=== PATIENT | male | born 1960 ===

== ENCOUNTER 2021-05-03 21:24 | Emergency (ER) | payer SELFPAY ==
[~2021-05-03] VITALS: Ht 167.6 cm; Wt 70.0 kg
[2021-05-03 21:33] VITALS: BP 107/47
--- NOTE | 2021-05-03 21:40 | NUR ---
[facility] PT STATES SOB X TODAY, PT WAS JUST SEEN AT [facility] FOR SAME,
--- NOTE | 2021-05-03 21:47 | NUR ---
PT CAME OUT YELLING IN HALLWAY, PT TRIED TO SLAM GLASS DOOR IN THIS NURSES FACE YELLING FOR A PHONE, SECURITY CALLED AND BREANNA PENA STATED TO REMOVE PT FROM ER
== END 2021-05-03 21:57 | disposition home or self-care (01) ==
LOC: ED 21:51
DX: R06.00 Dyspnea, unspecified (principal); F17.210 Nicotine dependence, cigarettes, uncomplicated; R94.31 Abnormal electrocardiogram [ECG] [EKG]; Z72.9 Problem related to lifestyle, unspecified
CPT/HCPCS: 93005; 99283; 99406

== ENCOUNTER 2021-05-04 15:40 | Emergency (ER) | payer SELFPAY | END 2021-05-04 16:05 | disposition left against medical advice (07) | LOC: ED 16:00 | DX: F10.129 Alcohol abuse with intoxication, unspecified (principal); Y90.0 Blood alcohol level of less than 20 mg/100 ml ==

== ENCOUNTER 2021-05-04 23:02 | Emergency (ER) | payer SELFPAY ==
[~2021-05-04] VITALS: Ht 175.3 cm; Wt 57.6 kg
[2021-05-04 23:09] VITALS: BP 94/53
--- NOTE | 2021-05-04 23:12 | NUR ---
Patient BIBA from the skilled nursing with nonspecific complaints including, "I have pain all over and I can't move." Patient ambulatory to room from ambulance. No other complaints. Patient is in NAD. Respirations even and unlabored.
[2021-05-04] MEDS ORDERED: DIPHENHYDRAMINE 25 MG CAPSULE ONE (23:15)
[2021-05-04] MEDS ORDERED: LORazepam 1MG TABLET ONE (23:15)
[2021-05-04] MEDS ORDERED: DIPHENHYDRAMINE 25 MG CAPSULE PO ONE (23:30)
[2021-05-04] MEDS ORDERED: LORazepam 1MG TABLET PO ONE (23:30)
--- NOTE | 2021-05-04 23:37 | NUR ---
Medicated patient per dec. Discharge instructions given. All questions and concerns addressed. Patient ambulatory with a steady gait. Belongings with patient. Given a new pair of socks.
--- NOTE | 2021-05-04 23:44 | NUR ---
Patient refusing to leave. Contacted security to escort patient to discharge.
== END 2021-05-05 00:07 | disposition home or self-care (01) ==
LOC: ED 23:30
DX: F51.01 Primary insomnia (principal); Z72.9 Problem related to lifestyle, unspecified; F17.200 Nicotine dependence, unspecified, uncomplicated
CPT/HCPCS: 99283; Q0163